=== PATIENT | female | born 1940 | race Caucasian/White ===

== ENCOUNTER 2017-02-15 12:12 | Outpatient (CLI) | payer MEDICARE, OTHER ==
[~2017-02-15] VITALS: Ht 152.4 cm; Wt 77.3 kg
--- NOTE | ~2017-02-15 | OP ---
PATIENT NAME: INNA GRAY MEDICAL RECORD: [id number] :40 LOCATION:D.CAT ADMISSION DATE: SURGEON: CARLA HEADLEY MD DATE OF OPERATION: 02/15/2017 PROCEDURE: Left heart catheterization, selective coronary angiography, right femoral artery approach. CATHETERS: A 5-Tuvaluan sheath, 5/4 left and right Sharron, 5/4 pig. The procedure was well tolerated and the patient returned to degroot, sheath removed, ExoSeal device placed. FINDINGS: Left ventriculography in the 30-degree JESUS view: Normal wall motion, normal systolic function. CORONARY ANATOMY. LEFT MAIN: Left main is free of disease. LAD: Free of disease as is the diagonal system. CIRCUMFLEX: Free of disease in the marginal system. RIGHT CORONARY ARTERY: Codominant system, free of disease. IMPRESSION: Normal systolic function. Normal coronary anatomy. TRANSINT:[id number] Voice Confirmation ID: [id number] DOCUMENT ID: [id number] CARLA HEADLEY MD at 1144 CC: [id number] DICTATION DATE: 02/15/17 1457 AESTHETICIAN: 02/15/17 1556 DEP CLI 02/15/17 [facility] [address] [place] [address]
--- NOTE | ~2017-02-15 | HEMODYNAMI ---
PATIENT:INNA GRAY MEDICAL RECORD: [id number] : 40 LOCATION:[facility] ADMISSION DATE: 02/15/17 Generatedon:02/15/201714:55 Patient name: INNA GRAY Patient #: [id number] SSN: : 1940 Date of study: 02/15/2017 Page: Of Hemodynamic Procedure Report Patient Data Patient Demographics Procedure consent was obtained First Name: INNA Gender: Female Last Name: ISAAC : 1940 Patient #: [id number] Age: 76 year(s) Race: Unknown Additional ID: [id number] Contact details [address]: [address] [place] [address] State: [place] City: [place] Zip code: [address] Past Medical History Allergies Allergen Reaction Date Comments Reported Other allergy 02/15/2017 ASA, PCN, Tetanus and Diphtheria toxoids Admission Admission Data Admission Date: 02/15/2017 Admission Time: 12:12 Procedure Procedure Types Cath Procedure Diagnostic Procedure LHC LH w/Coronaries Miscellaneous Procedures Moderate Sedation up to 15 minutes Procedure Description Procedure Date Procedure Date: 02/15/2017 Procedure Start Time: 14:43 Procedure End Time: 14:55 Procedure Staff Name Function Demond Dodson MD Performing Physician Machelle Montes RT Monitor Evi Leija RT Scrub Omar Charles RN Nurse Kelly Cooney RT Scrub Procedure Data Cath Procedure Fluoroscopy Diagnostic fluoroscopy Total fluoroscopy Time: 1.8 time: 1.8 min min Diagnostic fluoroscopy Total fluoroscopy dose: 463 dose: 463 mGy mGy Contrast Material Contrast Material Type Amount (ml) Isovue 300 73 Entry Location Entry Primary Successful Side Size Upsize Upsize Entry Closure Succes sful Closure Location (Fr) 1 (Fr) 2 (Fr) Remarks Device Remarks Femoral Right 5 Fr Exoseal artery Estimated blood loss: 10 ml Diagnostic catheters Device Type Used For End Catheter Placement MULTIPACK JL 4.0 5Fr Procedure catheter MULTIPACK 3DRC 5Fr Procedure catheter MULTIPACK Pigtail 5 Fr Ventriculography catheter Procedure Complications No complications Procedure Medications Medication Administration Route Dosage 0.9% NaCl I.V. 100 ml/hr Oxygen NC 2 l/min Heparin Flush Bag added to field 2 bags (1000units/500ml NS) Lidocaine 2% added to field 20 Zofran I.V. 4 mg Versed I.V. 1 mg Fentanyl I.V. 50 mcg Fentanyl I.V. 50 mcg Versed I.V. 1 mg Hemodynamics Rest Heart Rate: 0 (bpm) Pressure Samples Time Site Value (mmHg) Purpose Heart Use Rate(bpm) 14:51 LV 83/14,16 EDP 61 14:52 AO 199/199(65) Pullback 57 14:52 LV 84/19,19 Pullback 57 Gradients Valve Time Site 1 Site 2 Mean SEP/DFP Peak To Heart Use (mmHg) (sec/min) Peak Rate (mmHg) (bpm) Aortic 14:52 LV AO 0 16 0 57 84/19,19 199/199(65) Calculations Valve P-P Mean Valve Index Valve Source Name Gradient Area Flow (cm2) Aortic 0 0 0 0 Snapshots Pre Cath Intra NCS Post Cath Vital Signs Time Heart Resp SPO2 NIBP (mmHg) Rhythm Pain Sedation Rate (ipm) (%) Status Level (bpm) 14:33:21 97 19 96 175/87(135) NSR 0 (11) 10(A) , No pain 14:37:41 73 14 96 159/75(118) NSR 0 (11) 9(A) , No pain 14:41:55 50 16 96 97/53(73) NSR 0 (11) 9(A) , No pain 14:46:09 53 19 98 84/42(58) NSR 0 (11) 9(A) , No pain 14:50:16 60 16 98 90/42(67) NSR 0 (11) 10(A) , No pain 14:54:24 49 10 98 84/49(63) NSR 0 (11) 10(A) , No pain Medications Time Medication Route Dose Verified Delivered Reason Notes E ffectiveness by by 14:25:29 0.9% NaCl I.V. 100ml/hr Demond Nelson used for [facility] RN procedure 14:25:54 Oxygen NC 2 l/min Demond Nelson Per [facility] physician 14:26:12 Heparin Flush added 2 bags Demond Lagos used for Bag to [facility] procedure (1000units/500ml field MD NEGRO NS) 14::31 Lidocaine 2% added 20ml Demond Lagos for local to vial [facility] anesthetic field MD NEGRO 14:31:28 Zofran I.V. 4 mg Demond Nelson for nausea [facility] RN, MD 14:36:25 Versed I.V. 1 mg Demond Nelson for [facility] sedation 14:36:38 Fentanyl I.V. 50 mcg Demond Nelson for [facility] sedation 14:41:28 Fentanyl I.V. 50 mcg Demond Nelson for [facility] sedation 14:41:36 Versed I.V. 1 mg Demond Nelson [address] [facility] sedation Procedure Log Time Note 14:19: Omar Charles RN sent for patient. Start room use. 14::27 Time tracking: Regular hours 14:: Plan of Care:Hemodynamics will remain stable., Cardiac rhythm will remain stable., Comfort level will be maintained., Respiratory function will remain adequate., Patient/ family verbilizes understanding of procedure., Procedure tolerated without complication., Recovers from procedure without complications.. 14:24:53 Patient received from Pre/Post Procedure Room to [facility] 2 Alert and oriented. Tansferred to table in Supine position. 14:25:15 H&P Date Dictated: 01/30/2017 Within 30 days and on chart.. 14:25:17 Pre-procedure instructions explained to patient. 14:25:19 Family in waiting room. 14:25:21 Patient NPO since Midnight. 14:25:29 0.9% NaCl 100ml/hr I.V. was administered by Omar Charles RN; used for procedure; 14::54 Oxygen 2 l/min NC was administered by Omar Charles RN; Per physician; 14::08 Patient allergic to Other allergyASA, PCN, Tetanus and Diphtheria toxoids 14:26:12 Heparin Flush Bag (1000units/500ml NS) 2 bags added to field was administered by Demond Dodson MD; used for procedure; 14::24 Warm blankets applied, and derick hugger turned on for patient comfort. 14:26:25 Correct patient and procedure confirmed by team. 14:26:27 Signed procedure consent form obtained from patient. 14::29 ECG and BP/O2 sat monitors applied to patient. 14::31 Lidocaine 2% 20ml vial added to field was administered by Demond Dodson MD; for local anesthetic; 14:28:46 Snore? No 14:29:01 Is patient on blood thinner?No 14:29:04 Patient diabetic? Yes. 14:29:05 If diabetic: On Metformin? No 14:29:10 Sleep apnea? No 14:29:15 Airway obstruction? No ? 14:29:38 IV patent on arrival in left forearm with 0.9% NaCl at [facility]. 14:31:28 Zofran 4 mg I.V. was administered by Omar Charles RN; for nausea; 14:31:45 Lab results completed and on chart. 14:31:49 Right groin area was prepped with chlora-prep and draped in sterile fashion 14:31:50 Alarms reviewed by R. N. 14:31:51 Sharps counted by scrub and verified by R.N. 14:32:03 Vital chart was started 14:32:31 Full Disclosure recording started 14:32:39 Physician paged 14:33:50 Physician arrived 14:33:51 --------ALL STOP TIME OUT------ 14:33:52 Final Timeout: patient, procedure, and site verified with staff and physician. All members of the team are in agreement. 14:33:53 Right groin site verified by team. 14:33:57 Physical assessment completed. ASA score P 2 - A patient with mild systemic disease as per Demond Dodson MD. 14:34:02 Sedation plan: IV Moderate Sedation Medication:Versed, Fentanyl 14:34:47 Use device set Femoral Dx 14:34:51 ACIST Syringe (68120) opened to sterile field. 14:34:51 Bag Decanter (2002S) opened to sterile field. 14:34:51 Medline Cath Pack ([id number]) opened to sterile field. 14:34:52 SHEATH 5FR [place] (MRB985) opened to sterile field. 14:34:53 DIAGNOSTIC WIRE .035 260cm J wire (523228) opened to sterile field. 14:34:54 ACIST Hand Control (99384) opened to sterile field. 14:34:55 ACIST Manifold (60816) opened to sterile field. 14:34:55 DIAGNOSTIC Multipack 5Fr catheter set (AD5658) opened to sterile field. 14:34:56 Tegaderm 4 x 4 (1626W) opened to sterile field. 14:34:58 PERCUTANEOUS ENTRY 19GA needle opened to sterile field. 14:36:25 Versed 1 mg I.V. was administered by Omar Charles RN; for sedation; 14:36:37 Baseline sample Acquired. 14:36:38 Fentanyl 50 mcg I.V. was administered by Omar Charles RN; for sedation; 14:36:40 Baseline sample Acquired. 14:36:46 Baseline sample Acquired. 14:36:53 Rhythm: sinus rhythm 14:41:28 Fentanyl 50 mcg I.V. was administered by Omar Charles RN; for sedation; 14:41:36 Versed 1 mg I.V. was administered by Omar Charles RN; for sedation; 14:43:07 Zero performed for pressure channel P1 14:43:38 Procedure started. 14:43:58 Local anesthetic to right femoral artery with Lidocaine 2% by Demond Dodson MD.INITIAL ACCESS ONLY 14:44:09 A 5 Fr sheath was inserted into the Right Femoral artery 14:45:24 J wire advanced. 14:45:36 A MULTIPACK JL 4.0 5Fr catheter was advanced over the wire and used for Procedure. 14:45:40 LCA angiography performed. 14:48:26 Catheter removed. 14:48:36 A MULTIPACK 3DRC 5Fr catheter was advanced over the wire and used for Procedure. 14:49:02 RCA angiography performed. 14:50:33 Catheter removed. 14:50:49 A MULTIPACK Pigtail 5 Fr catheter was advanced over the wire and used for Ventriculography. 14:51:04 LV gram done using JESUS 14:52:06 EXOSEAL 5Fr (EX500) opened to sterile field. 14:52:10 Catheter removed. 14:52:24 Sheath removed intact; hemostasis achieved with Exoseal to the Right Femoral artery. 14:52:27 Procedure ended.(Physican Out) 14:52:41 Fluoroscopy time 01.80 minutes. 14:52:46 Flurop Dose total: 463 14:52:46 Fluoroscopy dose: 463 mGy 14:52:52 Contrast amount:Isovue 300 73ml. 14:52:53 Sharps counted by scrub and verified by R.N. 14:52:55 Insertion/operative site no bleeding no hematoma. 14:53:51 Post-op/insertion site Right Femoral artery dressed using a 4 x 4 and Tegaderm. 14:53:53 Post Procedure Pulses reassessed and unchanged 14:53:58 Post procedure rhythm: unchanged. 14:54:01 Estimated blood loss: 10 ml 14:54:03 Post procedure instruction explained to patient.Patient verbalizes understanding. 14:54:12 Patient needs reinforcement of post procedure teaching. 14:54:37 Procedure type changed to Cath procedure, Diagnostic procedure, LHC, LHC w/Coronaries, Miscellaneous Procedures, Moderate Sedation up to 15 minutes 14:54:39 Procedure and supply charges have been captured, reviewed, submitted and are correct. 14:55:00 Procedure Complication : No complications 14:55:02 Vital chart was stopped 14:55:03 See physician's report for complete and final results. 14:55:06 Report given to Pre/Post Procedure Room. 14:55:09 Patient transfered to Pre/Post Procedure Room with Stretcher. 14:55:12 Procedure ended. 14:55:12 Full Disclosure recording stopped 14:55:17 End room use (Document Last) Device Usage Item Name Manufacture Quantity Catalog Hospital Part Current Minimal Lot# / Number Charge Number Stock Stock Serial# Code ACIST Acist 1 34530 761858 471282 477605 20 Syringe Medical (39357) Systems Inc Bag Decanter Microtek 1 208182 61859 836561 5 () Medical Inc. Medline Cath Cardinal 1 [id number] 921722 76305 052555 5 ThinkVidya ([id number]) SHEATH 5FR Terumo 1 NWC736 906802 700233 193530 40 [place] (FXA188) DIAGNOSTIC St [place] 1 313615 410178 594183 918217 30 WIRE .035 260cm J wire (033540) ACIST Hand Acist 1 46861 579918 859365 433333 5 Control Medical (35153) Systems Inc ACIST Acist 1 87146 354245 349414 117625 5 Manifold Medical (61945) Systems Inc DIAGNOSTIC Cardinal 1 [id number] 170613 70882 704720 30 Multipack Health 5Fr catheter set (WA0821) Tegaderm 4 x 3M 1 1626W 991925 652881 700918 5 4 (1626W) PERCUTANEOUS Cook Medical 1 M89049 130874 564037 5 ENTRY 19GA needle MULTIPACK JL Cardinal 1 630744 5 4.0 5Fr Health catheter MULTIPACK Cardinal 1 803187 5 3DRC 5Fr Health catheter MULTIPACK Cardinal 1 415202 5 Pigtail 5 Fr Health catheter EXOSEAL 5Fr Cardinal 1 EX500 420395 874107 049737 10 (EX500) Health Signature Audit [place] Stage Time Signature Unsigned Intra-Procedure 02/15/2017 Machelle Montes 2:55:46 PM RT(R) Signatures Monitor : Machelle Montes Signature : RT Date : Time : [address] [place] [address]
[2017-02-15] MEDS ORDERED: ULTRAM50 MG PO (13:01)
[2017-02-15] MEDS ORDERED: FUROSEMIDE40 MG PO (13:01)
[2017-02-15] MEDS ORDERED: PROTONIX40 MG PO (13:02)
[2017-02-15] MEDS ORDERED: NORVASC5 MG PO (13:03)
[2017-02-15] MEDS ORDERED: CELEXA10 MG PO (13:03)
[2017-02-15] MEDS ORDERED: COZAAR50 MG PO (13:03)
[2017-02-15] MEDS ORDERED: NEURONTIN 300300 MG PO (13:04)
[2017-02-15 13:07] VITALS: BP 129/54; Ht 152.4 cm; Wt 77.3 kg
[2017-02-15 13:31] LABS: BASOPHILS 0.3 % (0-2); EOSINOPHILS 4.8 % (0-7); HEMATOCRIT 35.5 % (36.0-48.0); HEMOGLOBIN 11.8 g/dL (12-16); IMMATURE GRANULOCYTES 0.2 % (0-5); LYMPHOCYTES 25.5 % (15-50); MCH 30.7 pg (26.0-34.0); MCHC 33.2 g/dL (31.0-37.0); MCV 92.4 fL (80.0-100.0); MEAN PLATELET VOLUME 8.5 fL (7.4-10.4); MONOCYTES 12.6 % (2-11); NEUTROPHILS 56.6 % (40-80); PLATELET COUNT 215 10x3/uL (130-400); RBC 3.84 10x6/uL (4.00-5.40); WBC 6.4 10x3/uL (4.8-10.8)
[2017-02-15 13:55] LABS: ANION GAP 12.2 mmol/L (8-16); CALCIUM 9.1 mg/dL (8.5-10.1); CARBON DIOXIDE 31.2 mmol/L (21.0-32.0); CREATININE - SERUM 1.8 mg/dL (0.6-1.3); POTASSIUM - SERUM 4.4 mmol/L (3.5-5.1)
== END 2017-02-15 17:26 | disposition home or self-care (01) ==
LOC: D.CATH 12:12
PROVIDERS: Internal Medicine Interventional Cardiology
DX: I20.9 Angina pectoris, unspecified (principal); Z01.812 Encounter for preprocedural laboratory examination

== ENCOUNTER 2017-09-04 06:57 | Day surgery (SDC) | payer MEDICARE, OTHER ==
[~2017-09-04] VITALS: Ht 152.4 cm; Wt 71.4 kg
--- NOTE | ~2017-09-04 | MORECARE ---
CASE MANAGEMENT DISCHARGE SUMMARY PATIENT: INNA GRAY UNIT: [id number] ADM DATE: 09/04/17 AGE: 77 : 40 SEX: F ROOM/BED: AUTHOR: CASE, SURVEYOR INSTRUMENT ASSISTANT PHYSICIAN: REFERRING PHYSICIAN: RUKHSANA CASIANO MD DATE OF SERVICE: 09/04/17 Discharge Plan Patient Name: INNA GRAY Facility[facility] : 1940 Planned Disposition: Inpatient Rehab Anticipated Discharge Date: Discharge Date: 09/05/2017 Expected LOS: 0 Initial Reviewer: [email or web address] Initial Review Date: 09/05/2017 Generated: 09/20/17 11:06 am Comments DCP- Discharge Planning Updated by [email or web address]: Halle Holloway on 09/05/17 1:[address] Patient Name: INNA GRAY Admission Status: Elective Accout number: [id number] Admission Date: 09-04-2017 : 1940 Admission Diagnosis: Attending: RUKHSANA CASIANO Current LOS: 1 Anticipated DC Date: Planned Disposition: Inpatient Rehab Primary Insurance: MEDICARE A & B Discharge Planning Comments: Fina with [facility] called and states patient has been approved for admission to their facility. Dr. Casiano called and informed, states he will put in the discharge order. States she may go by ambulance to [facility] since she cannot sit that long. [facility] called and they will be here at 3:30 to mushroom picker the patient. I informed her and her family member in the room, voiced understanding. aboriginal education worker coordinator and primary care nurse informed. CM will continue to follow and assist with discharge planning/needs. Oyster Washer: Halle Holloway DCP- Discharge Planning Updated by [email or web address]: Halle Holloway on 09/05/17 7:[address] Patient Name: INNA GRAY Admission Status: Elective Accout number: [id number] Admission Date: 09-04-2017 : 1940 Admission Diagnosis: Attending: RUKHSANA CASIANO Current LOS: 1 Anticipated DC Date: Planned Disposition: Inpatient Rehab Primary Insurance: MEDICARE A & B Discharge Planning Comments: Dr. Casiano states patient would like to go to [facility] inpatient rehab. I spoke with patient, she states she does want to go to the inpatient rehab at [facility], states she has been to [facility] before, but wants [facility] this time. I spoke with Fina at [facility] and faxed her clinical per her request. CM will continue to follow and assist with discharge planning/needs. [facility] (Fina) Phone - [phone] Fax - [phone] Oyster Washer: Halle Holloway External Providers External Provider: OTHER-OTHER Next Contact Date: Service Request Date: Service Type: Resolution: Reviewer: Comments: Patient Name: INNA GRAY Page [phone] All edits/amendments must be made on the electronic document DICTATION DATE: 09/20/17 1005 ASTRO TECHNICIAN: 09/20/17 1005 RPT#: [id number] DC DATE:09/05/17 STATUS: [address] [address] END OF REPORT
--- NOTE | ~2017-09-04 | OP ---
PATIENT NAME: INNA GRAY MEDICAL RECORD: [id number] :40 LOCATION:[facility] ADMISSION DATE: SURGEON: RUKHSANA ROMERO MD DATE OF OPERATION: 09/04/2017 PREOPERATIVE DIAGNOSES: Lumbar spinal stenosis and foraminal stenosis L3-L4 left and L4-L5 left. POSTOPERATIVE DIAGNOSES: Lumbar spinal stenosis and foraminal stenosis L3-L4 left and L4-L5 left. PROCEDURE: Lumbar laminotomy, medial facetectomy and foraminotomy at L3-L4 and L4-L5 left with METRx retractor. SURGEON: Rukhsana Romero MD DESCRIPTION AND TECHNIQUE: After induction of general endotracheal anesthesia, the patient was rolled prone on Frank frame. The lumbar spine was prepped and draped in usual sterile fashion. Fluoroscopic x-ray and spinal needle localized the L3-L4 interspace on the left side. A series of dilators were used to advance a METRx retractor at the L3-L4 interspace on the left side. The level was confirmed with fluoroscopic x-ray. A microscope and Midas Luis Alfredo drill were used to perform laminotomy, medial facetectomy and foraminotomy at L3-L4 on the left. Hypertrophied ligamentum flavum was removed with Cloward rongeurs. Following this, the L3 and L4 nerve roots were well decompressed. Next, the METRx retractor was directed to the L4-L5 interspace. A microscope and Midas Luis Alfredo drill were used to perform laminotomy, medial facetectomy and foraminotomy. Hypertrophied ligamentum flavum was removed with Cloward rongeurs. Following this, the L4 and L5 nerve roots were decompressed well. Meticulous hemostasis was maintained throughout the wound. Wound was irrigated with copious amounts of Ancef irrigant solution. The fascia was closed with 2-0 Vicryl suture. Subdermal layer was closed with 3-0 Vicryl suture. The skin was closed with desirae. A sterile dressing was applied to the wound. The patient was awakened in good condition and taken to recovery. All counts were reported as correct. Estimated blood loss was minimal. TRANSINT:[id number] Voice Confirmation ID: [id number] DOCUMENT ID: [id number] RUKHSANA ROMERO MD at 1700 CC: [id number] DICTATION DATE: 10/11/17 1900 RAINBOW TROUT FARM MANAGER: 10/12/17 0440 [facility] 09/05/17 [facility] [address] [place] [address]
[~2017-09-04 06:57] MED LIST: ADVAIR 500/501 DISK INH; CELEXA10 MG PO; COZAAR50 MG PO; FUROSEMIDE40 MG PO; HUMALOG 30100 UNITS/ SQ; LANTUS INSULIN10 ML SQ; NEURONTIN 300300 MG PO; NORVASC5 MG PO; PROTONIX40 MG PO; ULTRAM50 MG PO
[2017-09-04 07:18] LABS: HEMATOCRIT 37.6 % (36.0-48.0); HEMOGLOBIN 12.2 g/dL (12-16); MCHC 32.4 g/dL (31.0-37.0); MCV 89.3 fL (80.0-100.0); MEAN PLATELET VOLUME 8.3 fL (7.4-10.4); RBC 4.21 10x6/uL (4.00-5.40); RDW 13.5 % (11.5-14.5); WBC 6.4 10x3/uL (4.8-10.8)
[2017-09-04 08:04] LABS: ANION GAP 11.6 mmol/L (8-16); CALCIUM 8.6 mg/dL (8.5-10.1); CARBON DIOXIDE 29.6 mmol/L (21.0-32.0); CREATININE - SERUM 1.7 mg/dL (0.6-1.3); POTASSIUM - SERUM 4.2 mmol/L (3.5-5.1)
[2017-09-04 08:48] VITALS: BP 153/69; BMI 30.7
[2017-09-04 18:32] VITALS: BP 163/76
[2017-09-04 20:00] VITALS: BP 164/80
[2017-09-05 03:50] VITALS: BP 150/61
[2017-09-05 07:29] VITALS: BP 164/80; Ht 152.4 cm; Wt 71.4 kg
[2017-09-05 09:05] VITALS: BP 182/87
[2017-09-05 12:48] VITALS: BP 166/49
[2017-09-05] MEDS ORDERED: HYDROCODONE-APA1 TAB PO (14:23)
== END 2017-09-05 15:34 ==
LOC: D.MS 06:57 → D.OPS 06:57 → D.PAN 09:30 → D.MS 18:10 → D.OPS 18:11 → D.MS 18:11 → D.OPS 18:11 → D.MS 09-05 15:34
PROVIDERS: Anesthesiology
DX: M54.16 Radiculopathy, lumbar region (principal); I10 Essential (primary) hypertension; K21.9 Gastro-esophageal reflux disease without esophagitis; E11.9 Type 2 diabetes mellitus without complications; Z79.4 Long term (current) use of insulin; Z87.891 Personal history of nicotine dependence